=== PATIENT | male | born 1970 | race Caucasian/White ===

== ENCOUNTER → 2017-11-26 12:35 | Outpatient (CLI) | payer OTHER, SELFPAY ==
--- NOTE | 2017-11-26 | DI.US.S_ITS ---
PROCEDURE: US SCROTUM INDICATIONS: LEFT SCROTAL MASS TECHNIQUE: Real-time scanning was performed of the scrotum and testicles, with image documentation. Color and pulse Doppler interrogation was performed of both testicles. COMPARISON: None. FINDINGS: Right: Testicle is normal in size at 4.8 x 2.2 x 3.2 cm, and homogenous in echotexture. Epididymis is normal in overall size and morphology. No hydrocele or varicoceles. Overlying scrotal skin is normal in thickness. Left: Testicle is normal in size at 4.5 x 2.2 x 2.9 cm, and homogeneous in echotexture. Epididymis is normal in overall size and morphology. Left epididymal cyst measuring roughly 27 mm No hydrocele or varicoceles. Overlying scrotal skin is normal in thickness. Doppler: Color and pulse Doppler demonstrate normal and symmetric arterial flow in both testicles. IMPRESSION: Left epididymal cyst measuring 27 mm, otherwise normal testicles. Dictated by: Bruce TURPIN Interpreted: Moi Parker MD on 11/26/2017 at 14:08 Approved by: Moi Parker M.D. on 11/26/2017 at 15:16
== END ==
PROVIDERS: Visit Provider Family Medicine
DX: N50.3 Cyst of epididymis (principal)
CPT/HCPCS: 76870

== ENCOUNTER → 2018-02-26 09:00 | Outpatient (CLI) | payer OTHER, SELFPAY | DX: Z23 Encounter for immunization (principal) | CPT/HCPCS: 90471; 90686 ==

== ENCOUNTER → 2019-03-20 12:09 | Outpatient (CLI) | payer OTHER, SELFPAY | DX: Z23 Encounter for immunization (principal) | CPT/HCPCS: 90471; 90686 ==

== ENCOUNTER → 2020-03-18 | Outpatient (CLI) | payer OTHER, SELFPAY | PROVIDERS: Referring Provider Internal Medicine; Visit Provider Internal Medicine | DX: Z23 Encounter for immunization (principal) | CPT/HCPCS: 90471; 90686 ==

== ENCOUNTER → 2020-05-05 09:11 | Outpatient (CLI) | payer OTHER, SELFPAY ==
[2020-05-05 11:48] LABS: COVID19 -Nasal RAPID Negative (Negative)
== END ==
PROVIDERS: Visit Provider Physician Assistant
DX: Z20.828 Contact with and (suspected) exposure to other viral communicable diseases (principal)
CPT/HCPCS: 87635

== ENCOUNTER → 2020-05-10 15:15 | Outpatient (CLI) | payer OTHER, SELFPAY ==
[2020-05-10 17:05] LABS: COVID19 -Nasal RAPID Negative (Negative)
== END ==
PROVIDERS: Visit Provider Physician Assistant
DX: Z11.59 Encounter for screening for other viral diseases (principal); R05 Cough
CPT/HCPCS: 87635

== ENCOUNTER → 2020-06-23 13:11 | Outpatient (CLI) | payer OTHER, SELFPAY ==
[2020-06-23] MEDS: COVID-19 VACC(MODERNA-1)/PF 100 MCG/0.5 ML VIAL IM (13:15)
== END ==
PROVIDERS: Visit Provider Internal Medicine
DX: Z23 Encounter for immunization (principal)
CPT/HCPCS: 0011A; 91301

== ENCOUNTER → 2020-07-07 13:35 | Outpatient (CLI) | payer OTHER, SELFPAY ==
[2020-07-07 14:42] LABS: COVID19 -Nasal RAPID Negative (Negative)
== END ==
PROVIDERS: Visit Provider Nurse Practitioner
DX: Z20.822 Contact with and (suspected) exposure to COVID-19 (principal)
CPT/HCPCS: 87635

== ENCOUNTER 2020-07-09 12:44 | Day surgery (SDC) | payer OTHER, SELFPAY ==
--- NOTE | 2020-07-09 | PATH_ITS ---
[facility] Accession Number: [id number] . 01 Material submitted: . sigmoid colon - 2 MM SIGMOID POLYP . 02 Diagnosis: Sigmoid Colon Polyp, 2 mm, Biopsy: Hyperplastic polyp. MRV 07/14/2020 1138 Local . 02 Electronically signed: . Uche Marinelli MD, PhD, Pathologist NPI- [id number] . 01 Gross description: . 2 MM SIGMOID POLYP: Received in formalin is 1 fragment(s) of cobb, soft tissue measuring 0.4 x 0.3 x 0.3 cm submitted entirely in 1 cassette(s) /DEWEY 07/12/2020 1859 Local . 02 Pathologist provided ICD-10: K63.5 . 02 CPT . 841145 Performed at: 01 [facility] [address] [facility], [place], [place] [id number] MD Florencio Valiente MD Phone: [phone] Performed at: 02 [facility] [address] [place], [place] [id number] MD Vangie Campa MD Phone: [phone]
--- NOTE | 2020-07-09 12:07 | P.HP_ITS ---
History of Present Illness History of Present Illness Date Patient Seen: 07/09/20 Chief complaint: SDC Narrative: 50 Years Old Male seen today for consideration of a screening colonoscopy. He has never had a colonoscopy. There have been no lower GI symptoms suggesting disease such as change in bowel habits, bleeding, abdominal pain or anemia. There's been no family history of colon cancer or colon polyps. Overall health issues have been stable, including no major cardiac events for at least 6 weeks. Past Medical History: Reviewed history from 03/26/2020 and no changes required: Foot fracture, R 2012 HYPERLIPIDEMIA HYPERTENSION SCOLIOSIS, THORACOLUMBAR HYPOKALEMIA Spermatocele Epididymal cyst VITAMIN D DEFICIENCY Conjunctivitis allergic PROSTATITIS, RECURRENT Past Surgical History: Reviewed history from 06/04/2014 and no changes required: Spinal fusion and rodding, thoracic, 1990 Family History: Reviewed history from 06/04/2014 and no changes required: Hyperlipidemia mom dad Hypertension mom dad Social History: Reviewed history from 03/26/2020 and no changes required: Marital Status: , Ashley 10/08/1963 Children: Joseph, 06/14/2000 Occupation: Finance, [employer] Household Members: Spouse (Joseph is now in college) Education: Some College Meds Home Medications and Allergies Home Medications Medication Instructions Recorded Confirmed Type HOMEOPATHIC SUBSTANCE (SAW 1 cap PO DAILY #0 02/08/11 07/09/20 History PALMETTO) furosemide 20 mg PO DAILY #0 03/03/12 07/09/20 History CHLORTHALIDONE (#HYGROTON) 25 mg PO Q DAY #30 04/09/12 07/09/20 Rx Aspirin Child 1 tab PO DAILY 07/09/20 07/09/20 History Vitamin D3 1 tab PO DAILY 07/09/20 07/09/20 History atorvastatin 40 mg PO DAILY 07/09/20 07/09/20 History potassium chloride 10 meq PO DAILY 07/09/20 07/09/20 History Allergies Allergy/AdvReac Type Severity Reaction Status Date / Time No Known Drug Allergies Allergy Verified 07/09/20 12:53 Review of Systems Review of Systems ROS: Yes All systems reviewed with the patient and are negative except as otherwise documented Exam Narrative Exam Narrative: General: well developed, well nourished, in no acute distress, Head: normocephalic and atraumatic, Lungs: normal respiratory effort, clear bilaterally to auscultation, no wheezes rales or rhonchi. (unchanged from 03/26/2020) Heart: normal rate and regular rhythm, no murmurs, rubs, gallops, or clicks, Abdomen: abdomen soft and non-tender without masses, organomegaly, or abdominal wall hernias, bowel sounds positive. (unchanged from 03/26/2020) Skin: intact without suspicious lesions or rashes, Psych: alert and cooperative; normal mood and affect; normal attention span and concentration; cognition, remote and recent memory appear to be intact, Assessment & Plan Assessment & Plan narrative: 1. Screening for colon cancer Plan for colonoscopy. The nature and character of the procedure as well as anticipated results were discussed. The possibility of not completing the procedure was also discussed. Possible complications including aspiration pneumonia, bleeding, perforation and reaction to medications either for sedation or preparation and missed lesions were discussed. Questions were answered and proceeding to the colonoscopy was elected. Informed consent signed. I sincerely appreciate the referral allowing me to participate in this patient's care. Please contact me with any questions or concerns.
--- NOTE | 2020-07-09 12:08 | P.OP.ENDO_ITS ---
Operative Date/Time/Diagnoses Date of procedure: 07/09/20 Procedure Notes Procedure in detail: ENDOSCOPIST: Radha Kamara MD Sedation RN: Delores Frank RN Sedation start time: 1:51 p.m.. Sedation end time: 2:19 p.m. PROCEDURE: Colonoscopy with biopsy INDICATIONS: 1. Screening for colon cancer MEDICATION: Levsin 0.125 mg sublingual, incremental doses of Versed and fentanyl until appropriate level sedation achieved. ASA CLASS: 2 CECAL WITHDRAWAL TIME: 15 minutes COMPLICATIONS: None. EXTENT OF PROCEDURE: Cecum. QUALITY OF PREP: Good with portions of liquid stool. PROCEDURE: Prior to insertion of the colonoscope, a digital rectal examination was acco mplished with circumferential palpation of the distal rectal mucosa without significant findings being noted. The high-definition colonoscope was passed into the rectum in the usual fashion and advanced over to the cecum without difficulty. The ileocecal valve, appendiceal stoma, and medial wall all could be inspected and no abnormalities were seen. ASCENDING COLON: As the colonoscope was withdrawn, care was taken to expose and inspect the haustral folds and no abnormalities were seen. HEPATIC FLEXURE: Normal, no polyps, diverticula or other abnormalities. TRANSVERSE COLON: Normal, no polyps, diverticula or other abnormalities. DESCENDING COLON: Normal, no polyps, diverticula or other abnormalities. SIGMOID COLON: 2 mm polyp removed with cold biopsy forceps. Otherwise, normal, no diverticula or other abnormalities. RECTUM: Normal. J maneuver was produced. There was no significant perianal disease. The J maneuver was broken. The remainder of the rectum was inspected and there was no external hemorrhoid disease. The scope was withdrawn. IMPRESSION: 1. Sigmoid polyp x1, 2 mm, removed with cold biopsy forceps PLAN: 1. Follow-up in clinic status post pathology results. The possibility of a missed lesion including a malignancy has been discussed with the patient previously. Potential alarm symptoms have been discussed and should be reported immediately.
[2020-07-09 13:10] VITALS: BP 136/81; PULSE 99; RESP 18; TEMP 37; O2SAT 99; BMI 22.7
[2020-07-09] MEDS: HYOSCYAMINE 0.125 MG TABLET PO (13:25)
[2020-07-09] MEDS: LACTATED RINGERS 1,000 ML 200 ML IV (13:38)
[2020-07-09] MEDS: MIDAZOLAM 5 MG/5 ML VIAL IV (14:01)
[2020-07-09] MEDS: fentaNYL 250 MCG/5 ML INJ IV (14:01)
[2020-07-09 14:24] VITALS: BP 115/74; PULSE 97; RESP 18; TEMP 36.5; O2SAT 100
[2020-07-09 14:30] VITALS: BP 130/71; PULSE 86; RESP 16; O2SAT 99
[2020-07-09 14:35] VITALS: BP 125/80; PULSE 85; RESP 16; O2SAT 97
[2020-07-09 14:36] VITALS: BP 129/69; PULSE 82; RESP 16; TEMP 36.6; O2SAT 99
[2020-07-09 14:50] VITALS: BP 115/76; PULSE 82; RESP 16; TEMP 36.4; O2SAT 97
== END 2020-07-09 15:00 | disposition home or self-care (01) ==
PROVIDERS: Referring Provider Student in an Organized Health Care Education/Training Program; Visit Provider Student in an Organized Health Care Education/Training Program
PROC: 0DJD8ZZ Inspection of Lower Intestinal Tract, Via Natural or Artificial Opening Endoscopic (ICD-10-PCS; CPT 45378; principal; 2020-07-09 13:45)
DX: Z12.11 Encounter for screening for malignant neoplasm of colon (principal); I10 Essential (primary) hypertension; E78.5 Hyperlipidemia, unspecified; K57.30 Diverticulosis of large intestine without perforation or abscess without bleeding; K63.5 Polyp of colon
CPT/HCPCS: 45380; J2250; J3010

== ENCOUNTER → 2020-07-22 11:05 | Outpatient (CLI) | payer OTHER, SELFPAY ==
[2020-07-22] MEDS: COVID-19 VACC #2, MRNA(MOD) 100 MCG/0.5 ML VIAL IM (11:17)
== END ==
PROVIDERS: Visit Provider Internal Medicine
DX: Z23 Encounter for immunization (principal)
CPT/HCPCS: 0012A; 91301

== ENCOUNTER → 2021-03-24 10:43 | Outpatient (CLI) | payer OTHER, SELFPAY | PROVIDERS: Referring Provider Internal Medicine; Visit Provider Internal Medicine | DX: Z23 Encounter for immunization (principal) | CPT/HCPCS: 90471; 90686 ==

== ENCOUNTER → 2021-04-07 14:42 | Outpatient (CLI) | payer OTHER, SELFPAY ==
--- NOTE | 2021-04-07 | DI.US.S_ITS ---
PROCEDURE: US SCROTUM INDICATIONS: SPERMATOCELE TECHNIQUE: Real-time scanning was performed of the scrotum and testicles, with image documentation. Color and pulse Doppler interrogation was performed of both testicles. COMPARISON: [facility], , US SCROTUM, 11/26/2017, 13:05. FINDINGS: Right: Testicle is normal in size at 4.7 x 2.9 x 1.9 cm, and homogenous in echotexture. Epididymis is normal in overall size and morphology. Multiple epididymal cysts, largest measuring 7 mm. No hydrocele or varicoceles. Overlying scrotal skin is normal in thickness. Left: Testicle is normal in size at 4.2 x 3.1 x 2.2 cm, and homogeneous in echotexture. Epididymis is normal in overall size and morphology. Multiple epididymal cyst, largest measuring up to 3.9 cm which does contain internal debris. No hydrocele or varicoceles. Overlying scrotal skin is normal in thickness. Doppler: Color and pulse Doppler demonstrate normal and symmetric arterial flow in both testicles. IMPRESSION: 1. Normal appearance of the testicles bilaterally. 2. Bilateral epididymal cysts, largest measuring up to 3.9 cm on the left which is mildly complex and has slightly increased in size compared to prior examination. Dictated by: Bruce TURPIN Interpreted: Mitch Haas MD on 04/07/2021 at 16:36 Transcribed by: DAVID on 04/07/2021 at 16:39 Approved by: Mitch Haas M.D. on 04/07/2021 at 17:01
== END ==
PROVIDERS: PCP Student in an Organized Health Care Education/Training Program; Referring Provider Student in an Organized Health Care Education/Training Program; Visit Provider Student in an Organized Health Care Education/Training Program
DX: N43.40 Spermatocele of epididymis, unspecified (principal); N50.3 Cyst of epididymis
CPT/HCPCS: 76870

== ENCOUNTER → 2021-04-22 08:37 | Outpatient (CLI) | payer OTHER, SELFPAY ==
[2021-04-22] MEDS: COVID-19 VACC #3, MRNA(MOD) 50 MCG/0.25 ML VIAL IM (08:40)
== END ==
PROVIDERS: PCP Student in an Organized Health Care Education/Training Program; Visit Provider Internal Medicine
DX: Z23 Encounter for immunization (principal)
CPT/HCPCS: 0013A; 91301

== ENCOUNTER → 2024-08-02 09:55 | Outpatient (CLI) | payer OTHER, SELFPAY ==
--- NOTE | 2024-08-02 10:22 | DI.CT.S_ITS ---
PROCEDURE: CT ABDOMEN PELVIS WO/W CON INDICATIONS: Asymptomatic microscopic hematuria TECHNIQUE: Optional 5 mm thick noncontrast images acquired from the diaphragm to the symphysis pubis. After the administration of intravenous contrast, 5 mm thick images acquired from the diaphragm to the symphysis pubis after a 10-minute delay. 2 mm thick coronal and sagittal reformats were then performed of the kidneys and ureters. For radiation dose reduction, the following was used: automated exposure control, adjustment of mA and/or kV according to patient size. COMPARISON: None. FINDINGS: Image quality: Diagnostic. Kidneys and Ureters: Both kidneys are normal in size, without hydronephrosis or nephrolithiasis. No perinephric fat stranding. There is normal bilateral renal enhancement. Renal calyces appear normal in morphology when filled with contrast. Opacified portions of both ureters demonstrate normal caliber Bladder: Bladder wall thickness is normal. No calcified bladder stones. OTHER: Lower chest: Unremarkable. Liver: No solid mass. Gallbladder: No wall thickening or calcified stones. Biliary ducts: No biliary dilation. Pancreas: Normal size and morphology without visible ductal dilatation or inflammation. Spleen: Size is within normal limits. Adrenal Glands: No adrenal nodules. Stomach and Bowel: Stomach and small bowel loops are normal caliber. Proximal colon is normal. Sigmoid colon demonstrates extensive diverticulosis. Peritoneum: No abnormal intraperitoneal fluid. No free air. Ventral Wall: No hernia. Abdominal Nodes: No retroperitoneal or mesenteric adenopathy by size criteria. Vessels: The abdominal aorta, IVC, and portal vein are of normal caliber. PELVIS: Pelvic Organs: Mild prostatomegaly. Pelvic Nodes: No enlarged lymph nodes. Miscellaneous: No inguinal hernias are seen. Bones: No aggressive osseous abnormality. IMPRESSION: No urinary calcifications or evidence of obstructive uropathy. No suspicious soft tissue lesions. Mild prostatomegaly. Sigmoid colonic diverticulosis. Dictated by: Dominique Ramos M.D. on 08/03/2024 at 18:00 Approved by: Dominique Ramos M.D. on 08/03/2024 at 18:05
--- NOTE | 2024-08-02 10:22 | DI.MRI.S_ITS ---
PROCEDURE: MR PELVIC PROSTATE PROTOCOL INDICATIONS: Elevated PSA/family history prostate cancer TECHNIQUE: Coronal HASTE, axial T1 FSE with fat saturation, 3-plane nonbreath-hold T2 FSE. After the administration of contrast, dynamic axial, delayed axial and coronal VIBE or 2-D FLASH with fat saturation through the pelvis. Diffusion weighted imaging and ADC was performed. COMPARISON: [facility], CT, CT ABDOMEN PELVIS WO/W CON, 08/02/2024, 10:49. FINDINGS: Image quality: Diffusion weighted and dynamic contrast enhanced images are diagnostic. Prostate: Gland size is 3.6 x 6.6 x 4.1 cm; ellipsoid gland volume is 51 mL. Transitional zone heterogenous nodules are present, either well encapsulated or mostly encapsulated, compatible with PI-RADS 1 or 2 likely BPH nodules. Mildly T2 hypointense heterogenous striated appearance of the peripheral zone is commonly seen with current or prior prostatitis, PI-RADS 2. In the right mid gland posterolateral peripheral zone, there is a 9 x 9 x 11 millimeter lesion (6/16, 5/13). More focal diffusion signal is seen in this region (DWI score 3). T2 score 3. DCE negative. PI-RADS 3. No extracapsular disease. Seminal vesicles appear clear Genitourinary system: Unremarkable Bowel and peritoneum: Unremarkable lower abdominal loops. There are colonic diverticula. No pathologic ascites Nodes and vessels: No aneurysmal artery identified. No pathologic lymph nodes by size criteria Soft tissues: Pelvic wall appears unremarkable. Bones: No suspicious osseous enhancement. IMPRESSION: Background BPH nodules and probable sequelae of prostatitis. These are the predominant findings. A 9 x 11 millimeter more focal area of diffusion restriction is seen in the right mid gland posterolateral peripheral zone. PI-RADS 3. Dictated by: Azar Patricio M.D. on 08/04/2024 at 8:55 Approved by: Azar Patricio M.D. on 08/04/2024 at 9:02
[2024-08-02 10:33] LABS: Estimated Glomerular Filt Rate > 60 mL/min (>60)
== END ==
PROVIDERS: Radiology Diagnostic Radiology; PCP Student in an Organized Health Care Education/Training Program; Referring Provider Urology; Visit Provider Urology
DX: K57.30 Diverticulosis of large intestine without perforation or abscess without bleeding (principal); N40.2 Nodular prostate without lower urinary tract symptoms; R31.21 Asymptomatic microscopic hematuria; R97.20 Elevated prostate specific antigen [PSA]; Z80.42 Family history of malignant neoplasm of prostate
CPT/HCPCS: 36415; 72197; 74178; 82565; A9579; Q9967